=== PATIENT | female | born 1985 | race Caucasian/White ===

== ENCOUNTER 2019-03-28 08:03 | Emergency (ER) | payer BC, OTHER ==
[~2019-03-28] VITALS: Ht 177.8 cm; Wt 76.7 kg
[~2019-03-28 08:03] MED LIST: BUTA-198 PO; IBUP200T45 PO; IBUP80TA PO; LEVO750T13 PO; PERCOCET PO; VITAPRTA PO
[2019-03-28] MEDS ORDERED: NS 1,000 ML IV ONE (08:45)
[2019-03-28 09:22] LABS: BASO % 0.7 % (0.0-1.0); EOS % 0.5 % (0.0-3.0); HEMATOCRIT 42.8 % (36.0-47.0); HEMOGLOBIN 13.6 g/dl (12.0-15.5); LYMPH # 0.9 10^3/uL (1.5-5.0); LYMPH % 14.5 % (24.0-44.0); MEAN CORPUSCULAR HEMOGLOBIN 29.8 pg (27.0-33.0); MEAN CORPUSCULAR HGB CONC 31.8 g/dl (32.0-36.5); MEAN CORPUSCULAR VOLUME 93.7 fl (80.0-96.0); MONO # 0.9 10^3/uL (0.0-0.8); MONO % 15.5 % (0.0-5.0); NEUTROPHILS # 4.1 10^3/uL (1.5-8.5); NEUTROPHILS % 68.6 % (36.0-66.0); PLATELET COUNT, AUTOMATED 143 10^3/uL (150-450); RED BLOOD COUNT 4.57 10^6/uL (4.00-5.40)
[2019-03-28] MEDS ORDERED: ISOVUE-370 76% 100ML VIAL (Q9967) As Ordered ONE (09:32)
[2019-03-28 09:51] LABS: ALBUMIN 3.9 GM/DL (3.2-5.2); BILIRUBIN,DIRECT 0.1 MG/DL (0.0-0.2); BILIRUBIN,TOTAL 0.4 MG/DL (0.2-1.0); TOTAL PROTEIN 6.9 GM/DL (6.4-8.2)
[2019-03-28] MEDS ORDERED: KETOROLAC 30 MG/ML VIAL (J1885) IV ONE (10:00)
--- NOTE | 2019-03-28 11:02 | REP ---
CT ABDOMEN AND PELVIS WITH IV CONTRAST: TECHNIQUE: Axial contrast enhanced images from the lung bases to the pubic symphysis using 100 mL Isovue 370 intravenous contrast material with multiplanar reformations. Visualized lung bases demonstrate mild dependent atelectatic changes. The liver, gallbladder, spleen, adrenals, pancreas, and kidneys are unremarkable. There is no hydronephrosis bilaterally. There is no abdominal aortic aneurysm. There is no adenopathy. There is no free air. I see no bowel wall thickening. The appendix is normal. There is mild free fluid in the pelvis. No definite pelvic mass is seen. Urinary bladder is mild to moderately distended with no gross abnormality. IMPRESSION: No evidence of appendicitis. No hydronephrosis. No free air. No bowel wall thickening. Mild free fluid in the pelvis is nonspecific. Electronically Signed by Rivera Andre MD 03/28/2019 03:55 P
[2019-03-28 12:03] VITALS: BP 100/62
--- NOTE | 2019-03-28 12:27 | REP ---
PELVIC ULTRASOUND: Real-time sonographic evaluation of the pelvis performed utilizing transabdominal and endovaginal technique. Bladder measures 7.8 x 8.4 x 11.3 cm. Uterus measures 9.9 x 5.3 x 6.4 cm. Endometrial thickness is 11 mm with no endometrial fluid collection. Ovaries are normal in size and echotexture, right ovary measuring 4.0 x 2.6 x 2.8 cm and left ovary 3.7 x 2.8 x 2.4 cm. There is no adnexal mass. There is no ovarian cyst. There is no torsion of either ovary with duplex Doppler evaluation. There is mild free fluid. IMPRESSION: Mild free fluid in the cul-de-sac. No evidence of mass, cyst or torsion. Electronically Signed by Rivera Andre MD 03/28/2019 04:01 P
== END 2019-03-28 12:11 | disposition home or self-care (01) ==
LOC: M ED 08:03
DX: R10.31 Right lower quadrant pain (principal); F17.200 Nicotine dependence, unspecified, uncomplicated
CPT/HCPCS: 74177; 76830; 76856; 80047; 80076; 81001; 83690; 84702; 85025; 93976; 96361; 96374; 99284; J1885; Q9967

== ENCOUNTER → 2021-07-20 | Outpatient (REF) | payer BC ==
[~2021-07-20] MED LIST changes: -IBUP200T45 PO; +IBUP200T46 PO
== END ==
LOC: M LAB REF 18:42
PROVIDERS: ATTEND Nurse Practitioner Family
DX: B37.3 Candidiasis of vulva and vagina (principal); Z12.4 Encounter for screening for malignant neoplasm of cervix

== ENCOUNTER → 2021-11-17 | Outpatient (CLI) | payer BC ==
[~2021-11-17] MED LIST changes: +LEVO1TAB40 PO; -LEVO750T13 PO
== END ==
LOC: M WUC 14:02
PROVIDERS: ATTEND Physician Assistant
DX: S92.354A Nondisplaced fracture of fifth metatarsal bone, right foot, initial encounter for closed fracture (principal); X58.XXXA Exposure to other specified factors, initial encounter